=== PATIENT | female | born 1980 | race Two or more races ===

== ENCOUNTER → 2020-08-30 10:39 | Outpatient (CLI) | payer OTHER | END | disposition home or self-care (01) | LOC: PPH VACUNA 10:39 | DX: Z23 Encounter for immunization (principal) ==

== ENCOUNTER 2023-03-11 06:54 | Day surgery (SDC) | payer OTHER ==
[~2023-03-11 06:54] MED LIST: LEVOTHYROXINE25 MCG PO
[2023-03-11 09:36] LABS: INR 1.04; PARTIAL THROMBOPLASTIN TIME 24.6 SECONDS (22.0-34.0); PROTHROMBIN TIME 10.9 SECONDS (9.0-11.5)
== END 2023-03-11 22:50 | disposition home or self-care (01) ==
LOC: CIR.AMB 06:54
PROVIDERS: ATTEND Obstetrics & Gynecology
DX: N84.0 Polyp of corpus uteri (principal); Z20.822 Contact with and (suspected) exposure to COVID-19; E03.9 Hypothyroidism, unspecified